=== PATIENT | female | born 1990 | race Caucasian/White ===

== ENCOUNTER 2017-12-15 12:45 | Emergency (ER) | payer MEDICAID, OTHER ==
[2017-12-15 12:52] VITALS: RESP 18; O2SAT 98
[2017-12-15] MEDS ORDERED: cefTRIAXone 250 MG, Lidocaine Hydrochloride 1% 1 ML IM ONE (13:38)
[2017-12-15 13:40] LABS: SQUAMOUS EPITHIAL 2 /hpf (0-5); URINE BILIRUBIN NEGATIVE (NEGATIVE); URINE BLOOD NEGATIVE (NEGATIVE); URINE CLARITY Clear (Clear); URINE COLOR Yellow (YELLOW); URINE GLUCOSE (UA) NORMAL (Normal); URINE LEUKOCYTE ESTERASE NEG Leu/uL (Negative); URINE PROTEIN NEGATIVE (NEGATIVE); URINE UROBILINOGEN NORMAL mg/dL (0.2-1.0)
[2017-12-15 13:41] LABS: HCG,QUALITATIVE URINE NEGATIVE (NEGATIVE)
--- NOTE | 2017-12-15 14:02 | C.PDOC ---
History Of Present Illness 27 year female presents to the ER after her significant other came home stating he had a positive test for gonorrhea. Patient reports she has not been experiencing any symptoms. Denies abdominal pain, fever, or vaginal discharge. Time Seen by Provider: 12/15/17 12:55 Chief Complaint (Nursing): Female Genitourinary History Per: Patient History/Exam Limitations: no limitations Associated Symptoms: denies: Fever, Other (Abdominal pain, Vaginal discharge) Recent travel outside of the [place]: No Abnormal Vaginal Bleeding: No Past Medical History Reviewed: Historical Data, Nursing Documentation, Vital Signs Vital Signs: Last Vital Signs Temp 98.4 F 12/15/17 12:52 Pulse 97 H 12/15/17 12:52 Resp 18 12/15/17 12:52 BP 110/74 12/15/17 12:52 Pulse Ox 98 12/15/17 14:02 Family History: States: Unknown Family Hx - Social History Hx Alcohol Use: No Hx Substance Use: No - Immunization History Hx Tetanus Toxoid Vaccination: No Hx Influenza Vaccination: No Hx Pneumococcal Vaccination: No Review Of Systems Constitutional: Negative for: Fever Gastrointestinal: Negative for: Abdominal Pain Genitourinary: Negative for: Vaginal Discharge Physical Exam - Physical Exam Appears: Non-toxic Skin: Normal Color, Warm, Dry Head: Atraumatic, Normacephalic Eye(s): bilateral: Normal Inspection Oral Mucosa: Moist Chest: Symmetrical, No Tenderness Cardiovascular: Rhythm Regular Respiratory: Normal Breath Sounds, No Rales, No Rhonchi, No Wheezing Gastrointestinal/Abdominal: Soft, No Tenderness Neurological/Psych: Oriented x3, Normal Speech ED Course And Treatment O2 Sat by Pulse Oximetry: 98 (Room air) Pulse Ox Interpretation: Normal Medical Decision Making Medical Decision Making: Urinalysis and GC/Chlamydia sent, zithromax and rocephin administered. Disposition - Disposition Referrals: [facility], [place] [Outside] Disposition: HOME/ ROUTINE Disposition Time: 14:00 Condition: GOOD Additional Instructions: Follow up with the medical clinic within further evaluation. Return if worsened. Instructions: Screening for Sexually Transmitted Infections Forms: [employer] ([place]) - Clinical Impression Clinical Impression: STD exposure - PA / [employer] / Resident Statement MD/DO has reviewed & agrees with the documentation as recorded. - Scribe Statement The provider has reviewed the documentation as recorded by the [facility] [place] All medical record entries made by the Scribe were at my direction and personally dictated by me. I have reviewed the chart and agree that the record accurately reflects my personal performance of the history, physical exam, medical decision making, and the department course for this patient. I have also personally directed, reviewed, and agree with the discharge instructions and disposition.
[2017-12-15 14:11] VITALS: BP 129/76; PULSE 79; TEMP 98
== END 2017-12-15 14:14 | disposition home or self-care (01) ==
LOC: C.ER 12:45
DX: Z20.2 Contact with and (suspected) exposure to infections with a predominantly sexual mode of transmission (principal)
CPT/HCPCS: 81001; 84703; 87491; 87591; 96372; 99284; J0696